=== PATIENT | female | born 1985 | race Caucasian/White ===

== ENCOUNTER 2017-02-04 17:26 | Emergency (ER) | payer MEDICAID, OTHER ==
[~2017-02-04] VITALS: Ht 157.5 cm; Wt 73.0 kg
[~2017-02-04 17:26] MED LIST: FERR27TA PO; ONDA4TAB8 PO; PREN1TAB49 PO
[2017-02-04 17:45] VITALS: Ht 157.5 cm; Wt 73.0 kg
[2017-02-04] MEDS ORDERED: IBUP400T22 PO (17:55)
--- NOTE | 2017-02-04 18:28 | ERA ---
ER Documentation Chief Complaint Date/Time DATE: 02/04/17 TIME: 18:24 Chief Complaint right hand pain x 4 days HPI This is a 31-year-old female who complains of right hand pain 2 weeks. Patient denies any trauma or causative factors/agents. Patient has not taken any medications to relieve the symptoms. Patient has had similar symptoms before and her left hand that resolved spontaneously. Patient denies any medical conditions including arthritis. Patient has no other current complaints or associated manifestations. ROS All systems reviewed and are negative except as per history of present illness. Medications Home Meds Active Scripts Ibuprofen* (Motrin*) 400 Mg Tab, 400 MG PO Q6H Y for PAIN AND OR ELEVATED TEMP, #30 TAB Prov:SUZANNE WOOD PA-C 02/04/17 Reported Medications Ferrous Sulfate (Iron) 1 Tab Tablet, 1 TAB PO DAILY 05/01/11 Ondansetron Hcl* (Zofran*) 4 Mg Tablet, 4 MG PO Q6 05/01/11 Vits W-Ca,Fe,Fa(<1MG) () 1 Tab Tablet, 1 TAB PO DAILY 05/01/11 [none] No Conflict Check 07/19/10 Allergies Allergies: Coded Allergies: No Known Allergies (Verified Allergy, Mild, 05/01/11) PMhx/Soc History of Surgery: Yes (WRIST SURGERY S/P FX) Anesthesia Reaction: No Hx Neurological Disorder: No Hx Respiratory Disorders: No Hx Cardiac Disorders: Yes (HEART MURMUR DX 2 YRS AGO) Hx Psychiatric Problems: No Hx Miscellaneous Medical Probl: No Hx Alcohol Use: No Hx Substance Use: No Hx Tobacco Use: No Physical Exam Vitals Vital Signs Date Time Temp Pulse Resp B/P Pulse Ox O2 Delivery O2 Flow Rate FiO2 02/04/17 17:45 97.6 87 18 141/97 97 Physical Exam Const: Well-appearing 31-year-old female in no acute distress sitting holding water bottle and right hand with no grossly visualized extra effort. Head: Atraumatic Eyes: Normal Conjunctiva ENT: Normal External Ears, Nose and Mouth. Neck: Full range of motion..~ No meningismus. Resp: Clear to auscultation bilaterally Cardio: Regular rate and rhythm, no murmurs Abd: Soft, non tender, non distended. Normal bowel sounds Skin: No petechiae or rashes Back: No midline or flank tenderness Ext: No cyanosis, or edema. Radial pulse 2+ bilaterally. Cyber Incident Handler strength equal bilaterally. Capillary refill under 2 seconds bilaterally. Neur: Awake and alert. Neurovascularly intact in all distributions of the upper extremities bilaterally. Psych: Normal Mood and Affect Procedures/MDM This is a 31-year-old female who is being worked up and evaluated for right hand pain without trauma. At this time I have very little suspicion for navicular fracture due to absence of snuffbox tenderness or mechanism of injury , there is no numbness or tingling and I have very low suspicion for carpal tunnel syndrome or neurovascular compromise. Patient's most likely diagnosis is tendinopathy of the right third digit. I have instructed the patient that she should follow-up with primary care physician for chronic management. 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 Patient's audograph operator strength is equal and appropriate bilaterally. Patient will be discharged with ibuprofen for control of symptoms. Patient's vitals are stable and current condition is appropriate for discharge. Departure Diagnosis: Primary Impression: Tendonitis of right hand Condition: Stable Patient Instructions: Tendonitis Additional Instructions: Follow up with your PCP within the next 1-3 days for a more thorough evaluation and a possible referral to a specialist. Return the the emergency department immediately if symptoms worsen or change. If you have any questions regarding medications, ask your pharmacist or us before you leave. If any adverse reactions occur while taking your medications, discontinue the treatment and return to the emergency department immediately. Take your medications as directed, and complete the entire course of treatment. SUZANNE WOOD PA-C February 04, 2017 18:28
== END 2017-02-04 17:50 | disposition home or self-care (01) ==
LOC: E/R 17:26
DX: M77.8 Other enthesopathies, not elsewhere classified (principal)
CPT/HCPCS: 99283

== ENCOUNTER 2017-05-25 09:12 | Emergency (ER) | payer MEDICAID, OTHER ==
[~2017-05-25] VITALS: Ht 160 cm; Wt 74.0 kg
[~2017-05-25 09:12] MED LIST changes: +IBUP400T22 PO
[2017-05-25 09:20] VITALS: Ht 160 cm; Wt 74.0 kg
[2017-05-25 10:24] LABS: BASOPHIL # 0.1 10^3/ul (0.0-0.1); BASOPHILS % 0.8 % (0.0-2.0); EOSINOPHILS # 0.3 10^3/ul (0.0-0.5); HEMATOCRIT 44.2 % (37.0-47.0); HEMOGLOBIN 14.4 g/dl (12.0-16.0); LYMPHOCYTES # 1.7 10^3/ul (0.8-2.9); LYMPHOCYTES % 22.5 % (15.0-51.0); MEAN CORPUSCULAR HEMOGLOBIN 27.4 pg (29.0-33.0); MEAN CORPUSCULAR HGB CONC 32.6 g/dl (32.0-37.0); MEAN CORPUSCULAR VOLUME 84.2 fl (82.0-101.0); MEAN PLATELET VOLUME 10.9 fl (7.4-10.4); MONOCYTE # 0.4 10^3/ul (0.3-0.9); MONOCYTES % 5.6 % (0.0-11.0); NEUTROPHILS % 66.3 % (39.0-77.0); PLATELET COUNT 220 10^3/UL (140-415); RED BLOOD COUNT 5.25 10^6/ul (4.20-5.40); RED CELL DISTRIBUTION WIDTH 13.2 % (11.5-14.5); WHITE BLOOD COUNT 7.7 10^3/ul (4.8-10.8)
[2017-05-25 10:29] LABS: ADD UMIC NO; UR ASCORBIC ACID NEGATIVE (NEGATIVE); UR BILIRUBIN (Dip) NEGATIVE (NEGATIVE); UR BLOOD (Dip) NEGATIVE (NEGATIVE); UR CLARITY CLEAR (CLEAR); UR COLOR YELLOW (YELLOW); UR GLUCOSE (Dip) NEGATIVE (NEGATIVE); UR KETONES (Dip) NEGATIVE (NEGATIVE); UR LEUKOCYTE ESTERASE (Dip) NEGATIVE Leu/ul (NEGATIVE); UR NITRITE (Dip) NEGATIVE (NEGATIVE); UR TOTAL PROTEIN (Dip) NEGATIVE (NEGATIVE); UR UROBILINOGEN (Dip) NEGATIVE (NEGATIVE)
[2017-05-25 10:52] LABS: ALBUMIN 4.6 g/dl (3.3-4.9); ALBUMIN/GLOBULIN RATIO 1.31; BILIRUBIN,INDIRECT 0.3 mg/dl (0-1.1); BILIRUBIN,TOTAL 0.3 mg/dl (0.2-1.3); CALCIUM 9.7 mg/dl (8.4-10.2); CREATININE 0.72 mg/dl (0.44-1.00); POTASSIUM 4.4 mmol/L (3.5-5.1); TOTAL PROTEIN 8.1 g/dl (6.1-8.1)
--- NOTE | 2017-05-25 11:06 | ERD ---
ER Documentation Chief Complaint Date/Time DATE: 05/25/17 TIME: 11:04 Chief Complaint EPIGASTRIC, NAUSEA AND CONSTIPATION/DIARRHEA X1 WK. BLACD STOOL THIS AM HPI Patient is a 32-year-old female who presents with multiple complaints. She is complaining of having changes in her bowel movement and sometimes having constipation and sometimes having diarrhea and then today she states that she had black colored stools. He is also complaining of epigastric pain with nausea but no vomiting. She is currently being treated with Macrobid for urinary tract infection she is taking Macrobid now for 2 days. No fever. ROS All systems reviewed and are negative except as per history of present illness. Medications Home Meds Active Scripts Ibuprofen* (Motrin*) 400 Mg Tab, 400 MG PO Q6H Y for PAIN AND OR ELEVATED TEMP, #30 TAB Prov:SUZANNE WOOD PA-C 02/04/17 Reported Medications Ferrous Sulfate (Iron) 1 Tab Tablet, 1 TAB PO DAILY 05/01/11 Ondansetron Hcl* (Zofran*) 4 Mg Tablet, 4 MG PO Q6 05/01/11 Vits W-Ca,Fe,Fa(<1MG) () 1 Tab Tablet, 1 TAB PO DAILY 05/01/11 [none] No Conflict Check 07/19/10 Allergies Allergies: Coded Allergies: No Known Allergies (Verified Allergy, Mild, 05/01/11) PMhx/Soc History of Surgery: Yes (WRIST SURGERY) Anesthesia Reaction: No Hx Neurological Disorder: No Hx Respiratory Disorders: No Hx Cardiac Disorders: Yes (HEART MURMUR ) Hx Psychiatric Problems: No Hx Miscellaneous Medical Probl: No (H Pylori) Hx Alcohol Use: No Hx Substance Use: No Hx Tobacco Use: No FmHx Family History: No diabetes Physical Exam Vitals Vital Signs Date Time Temp Pulse Resp B/P Pulse Ox O2 Delivery O2 Flow Rate FiO2 05/25/17 09:20 97.9 77 22 153/103 99 Physical Exam INITIAL VITAL SIGNS: Reviewed by me GENERAL: Awake, alert and oriented x 4, well appearing, nontoxic, speaking in full sentences. No acute distress HEAD: Atraumatic NECK: Supple. No masses. Full range of motion. No meningismus. No midline tenderness. EYES: EOMI. PERRL. . RESPIRATORY: Clear to auscultation bilaterally. Symmetric chest wall rise. No wheezing or rales. No accessory muscle use. CV: Regular rate and rhythm. No murmurs, rubs, or gallops. ABDOMEN: Soft, non-distended. Nontender. Negative Hudson. Negative McBurneys point tenderness. No CVA tenderness bilaterally. No guarding. No rebound. : Deffered. Result Diagram: 05/25/17 1005 05/25/17 1005 Results 24 hrs Laboratory Tests Test 05/25/17 10:00 05/25/17 10:01 05/25/17 10:05 Stool Occult Blood NEGATIVE Urine Color YELLOW Urine Clarity CLEAR Urine pH 6.0 Urine Specific [place] 1.010 Urine Ketones NEGATIVEmg/dL Urine Nitrite NEGATIVEmg/dL Urine Bilirubin NEGATIVEmg/dL Urine Urobilinogen NEGATIVEmg/dL Urine Leukocyte Esterase NEGATIVELeu/ul Urine Hemoglobin NEGATIVEmg/dL Urine Glucose NEGATIVEmg/dL Urine Total Protein NEGATIVEmg/dl White Blood Count 7.710^3/ul Red Blood Count 5.2510^6/ul Hemoglobin 14.4g/dl Hematocrit 44.2% Mean Corpuscular Volume 84.2fl Mean Corpuscular Hemoglobin 27.4pg Mean Corpuscular Hemoglobin Concent 32.6g/dl Red Cell Distribution Width 13.2% Platelet Count 40273^3/UL Mean Platelet Volume 10.9fl Neutrophils % 66.3% Lymphocytes % 22.5% Monocytes % 5.6% Eosinophils % 4.0% Basophils % 0.8% Nucleated Red Blood Cells % 0.0/100WBC Neutrophils # (Manual) 5.110^3/ul Lymphocytes # 1.710^3/ul Monocytes # 0.410^3/ul Eosinophils # 0.310^3/ul Basophils # 0.110^3/ul Nucleated Red Blood Cells # 0.010^3/ul Sodium Level 140mmol/L Potassium Level 4.4mmol/L Chloride Level 104mmol/L Carbon Dioxide Level 27mmol/L Anion Gap 13 Blood Urea Nitrogen 7mg/dl Creatinine 0.72mg/dl Glucose Level 95mg/dl Calcium Level 9.7mg/dl Total Bilirubin 0.3mg/dl Direct Bilirubin 0.00mg/dl Indirect Bilirubin 0.3mg/dl Aspartate Amino Transf (AST/SGOT) 29IU/L Alanine Aminotransferase (ALT/SGPT) 43IU/L Alkaline Phosphatase 94IU/L Total Protein 8.1g/dl Albumin 4.6g/dl Globulin 3.50g/dl Albumin/Globulin Ratio 1.31 Lipase 72U/L Procedures/MDM 32-year-old female presents complaining of dark colored stools today. Blood pressure is elevated 153/103 otherwise vitals are stable. She is afebrile. She has no tenderness throughout her GI examination. The differential diagnosis includes but is not limited to appendicitis, cholelithiasis, cholecystitis, pancreatitis, hepatitis, gastritis, peptic ulcer disease, bowel obstruction, diverticulitis, renal disease including stones, torsion, AAA, pyelonephritis, and others. Her blood work is unremarkable and furthermore the Hemoccult stool test is negative for blood. She is discharged with instructions to continue to take her Macrobid as prescribed. Patient counseled regarding my diagnostic impression and care plan. Prior to discharge all questions answered. Pt agrees with treatment plan and understands strict return precautions. Pt is instructed to follow up with primary care provider within 24- 48 hours. Precautionary instructions provided including instructions to return to the ER if not improving or for any worsening or changing symptoms or concerns. Departure Diagnosis: Primary Impression: Abdominal pain Condition: Stable Patient Instructions: Abdominal Pain Additional Instructions: Call your primary care doctor TOMORROW for an appointment during the next 1-2 days.See the doctor sooner or return here if your condition worsens before your appointment time. YAMILE HERNADEZ PA-C May 25, 2017 11:06
== END 2017-05-25 11:40 | disposition left against medical advice (07) ==
LOC: FTE 09:12
DX: R10.13 Epigastric pain (principal)
CPT/HCPCS: 36415; 80053; 81003; 82270; 83690; 85025; Z7502; 99283

== ENCOUNTER 2017-08-13 11:39 | Emergency (ER) | payer MEDICAID, OTHER ==
[~2017-08-13] VITALS: Wt 75.8 kg
--- NOTE | 2017-08-13 16:17 | RADRPT ---
PROCEDURE: Bilateral breast ultrasound, complete. CLINICAL INDICATION: 32-year-old female with bilateral breast pain. TECHNIQUE: Whole breast ultrasound is performed. COMPARISON: None FINDINGS: Ultrasound of the breast shows no evidence of mass, cyst, fluid collection or other sonographic abno rmality. There is no evidence of axillary adenopathy. IMPRESSION: No sonographic evidence of malignancy. BIRADS 1 (Negative). Recommend clinical management. RPTAT: HH .Thomas Oconnor MD, MD Date Time Electronically viewed and signed by .Thomas Oconnor MD, on 08/13/2017 16:17 .L/
--- NOTE | 2017-08-13 19:23 | ERD ---
ER Documentation Chief Complaint Chief Complaint LEFT BREAST PAIN, ONSET 1 DAY, NO DISCHARGE, ALSO WITH COUGH HPI This is a 32-year-old female presents to the ER with left-sided breast pain that started yesterday. Patient describes breast pain S tenderness MsPetey kern she touches her left breast. She has noticed slight discomfort to her right breast earlier today, however her main concern is her left breast. She does not have any nipple discharge. Patient states that she is currently sexually active and there is a possibility that she is . Patient denies any breast-feeding at this time, she denies any trauma to her breasts There is no redness or swelling to her breasts. She denies any trauma to the breasts. ROS 12 point review of systems was done, all negative except per HPI. Medications Home Meds Active Scripts Ibuprofen* (Motrin*) 400 Mg Tab, 400 MG PO Q6H Y for PAIN AND OR ELEVATED TEMP, #30 TAB Prov:SUZANNE WOOD PA-C 02/04/17 Reported Medications Ferrous Sulfate (Iron) 1 Tab Tablet, 1 TAB PO DAILY 05/01/11 Ondansetron Hcl* (Zofran*) 4 Mg Tablet, 4 MG PO Q6 05/01/11 Vits W-Ca,Fe,Fa(<1MG) () 1 Tab Tablet, 1 TAB PO DAILY 05/01/11 [none] No Conflict Check 07/19/10 Allergies Allergies: Coded Allergies: No Known Allergies (Verified Allergy, Mild, 05/01/11) PMhx/Soc History of Surgery: Yes (WRIST SURGERY) Anesthesia Reaction: No Hx Neurological Disorder: No Hx Respiratory Disorders: No Hx Cardiac Disorders: Yes (HEART MURMUR ) Hx Psychiatric Problems: No Hx Miscellaneous Medical Probl: No (H Pylori) Hx Alcohol Use: No Hx Substance Use: No Hx Tobacco Use: No Smoking Status: Never smoker Physical Exam Vitals Vital Signs Date Time Temp Pulse Resp B/P Pulse Ox O2 Delivery O2 Flow Rate FiO2 08/13/17 11:41 98.6 86 17 175/93 100 Physical Exam GENERAL: The patient is well developed and appropriate for usual state of health , in no apparent distress. HEENT: Atraumatic. BREAST: Breasts are symmetrical, there is no skin changes, nipple discharge, masses. No redness, swelling or warmth to the touch. CHEST: Clear to auscultation bilaterally. There are no rales, wheezes or rhonchi. HEART: Regular rate and rhythm. No murmurs, clicks, rubs or gallops. NEURO: Alert and oriented. SKIN: There is no apparent rash or petechia. The skin is warm and dry. Procedures/MDM Is a 32-year-old female presents to the ER with bilateral breast tenderness, patient is is likely the cause of her breast tenderness. patient denied any Vaginal bleeding or pelvic pain.Ultrasound was negative for any masses. Suspicion for mastoiditis is low as she is not breast-feeding there is no redness or swelling of her breast. He is afebrile extremely well-appearing. She is to follow-up with her primary care doctor within 1-2 days return to ER sooner if symptoms worsen. My medical decision making sure with the patient understands and agrees with plan. Departure Diagnosis: Primary Impression: Additional Impression: Breast pain Condition: Stable Patient Instructions: , New Dx Additional Instructions: Call your primary care doctor TOMORROW for an appointment during the next 1-2 days.See the doctor sooner or return here if your condition worsens before your appointment time. ANDREW GALLOWAY Aug 13, 2017 19:23
== END 2017-08-13 16:33 | disposition home or self-care (01) ==
LOC: FTE 11:39
DX: N64.4 Mastodynia (principal); Z33.1 Pregnant state, incidental
CPT/HCPCS: 76641; Z7502

== ENCOUNTER 2017-08-17 16:42 | Emergency (ER) | payer OTHER ==
[~2017-08-17] VITALS: Wt 76.2 kg
--- NOTE | 2017-08-17 18:49 | ERD ---
ER Documentation Chief Complaint Chief Complaint VAG SPOTTING THIS AM, PT PG, UNKNOWN GESTATIONAL AGE HPI 32-year-old female presents here in emergency department for complaints of vaginal spotting that started this morning. Patient is new that she was . Patient LMP was July 24, 2017. Patient denies any abdominal pain , flank pain. Patient denies any fever or chills. Patient denies any hematuria or dysuria. ROS All systems reviewed and are negative except as per history of present illness. Medications Home Meds Active Scripts Ibuprofen* (Motrin*) 400 Mg Tab, 400 MG PO Q6H Y for PAIN AND OR ELEVATED TEMP, #30 TAB Prov:SUZANNE WOOD PA-C 02/04/17 Reported Medications Ferrous Sulfate (Iron) 1 Tab Tablet, 1 TAB PO DAILY 05/01/11 Ondansetron Hcl* (Zofran*) 4 Mg Tablet, 4 MG PO Q6 05/01/11 Vits W-Ca,Fe,Fa(<1MG) () 1 Tab Tablet, 1 TAB PO DAILY 05/01/11 [none] No Conflict Check 07/19/10 Allergies Allergies: Coded Allergies: No Known Allergies (Verified Allergy, Mild, 05/01/11) PMhx/Soc History of Surgery: Yes (WRIST SURGERY) Anesthesia Reaction: No Hx Neurological Disorder: No Hx Respiratory Disorders: No Hx Cardiac Disorders: Yes (HEART MURMUR ) Hx Psychiatric Problems: No Hx Miscellaneous Medical Probl: No (H Pylori) Hx Alcohol Use: No Hx Substance Use: No Hx Tobacco Use: No FmHx Family History: No coronary disease, No diabetes, No other Physical Exam Vitals Vital Signs Date Time Temp Pulse Resp B/P Pulse Ox O2 Delivery O2 Flow Rate FiO2 08/17/17 16:47 99.2 87 18 151/93 97 Physical Exam GENERAL: The patient is well developed and appropriate for usual state of health, in no apparent distress. CHEST: Clear to auscultation bilaterally. There are no rales, wheezes or rhonchi. HEART: Regular rate and rhythm. No murmurs, clicks, rubs or gallops. No S3 or S4. ABDOMEN: Soft, nontender and nondistended. Good bowel sounds. No rebound or guarding. No gross peritonitis. No gross organomegaly or masses. No Price sign or McBurney point tenderness. BACK: No midline or flank tenderness. EXTREMITIES: Equal pulses bilaterally. There is no peripheral clubbing, cyanosis or edema. No focal swelling or erythema. Full range of motion. Grossly neurovascularly intact. NEURO: Alert and oriented. Cranial nerves 2-12 intact. Motor strength in all 4 extremities with 5/5 strength. Sensation grossly intact. Normal speech and gait. SKIN: There is no apparent rash or petechia. The skin is warm and dry. HEMATOLOGIC AND LYMPHATIC: There is no evidence of excessive bruising or lymphedema. No gross cervical, axillary, or inguinal lymphadenopathy. Vaginal: Small amount of blood in the vaginal vault, cervical loss is closed. No cervical motion tenderness or adnexal tenderness noted. Result Diagram: 08/17/17 1850 Results 24 hrs Laboratory Tests Test 08/17/17 18:50 White Blood Count 9.210^3/ul Red Blood Count 4.9310^6/ul Hemoglobin 13.9g/dl Hematocrit 40.7% Mean Corpuscular Volume 82.6fl Mean Corpuscular Hemoglobin 28.2pg Mean Corpuscular Hemoglobin Concent 34.2g/dl Red Cell Distribution Width 13.2% Platelet Count 15244^3/UL Mean Platelet Volume 10.9fl Neutrophils % 70.9% Lymphocytes % 19.2% Monocytes % 5.6% Eosinophils % 3.2% Basophils % 0.7% Nucleated Red Blood Cells % 0.0/100WBC Neutrophils # 6.510^3/ul Lymphocytes # 1.810^3/ul Monocytes # 0.510^3/ul Eosinophils # 0.310^3/ul Basophils # 0.110^3/ul Nucleated Red Blood Cells # 0.010^3/ul Urine Color YELLOW Urine Clarity SLIGHTLY CLOUDY Urine pH 7.0 Urine Specific [place] 1.011 Urine Ketones NEGATIVEmg/dL Urine Nitrite NEGATIVEmg/dL Urine Bilirubin NEGATIVEmg/dL Urine Urobilinogen NEGATIVEmg/dL Urine Leukocyte Esterase 3+Marisela/ul Urine Microscopic RBC 1/HPF Urine Microscopic WBC 2/HPF Urine Squamous Epithelial Cells MODERATE/HPF Urine Bacteria FEW/HPF Urine Hemoglobin 2+mg/dL Urine Glucose NEGATIVEmg/dL Urine Total Protein NEGATIVEmg/dl Beta HCG, Quantitative < 2.4mIU/ml PROCEDURE: US Pelvis. CLINICAL INDICATION: Pelvic pain . Spine. TECHNIQUE: Transabdominal and transvaginal pelvic ultrasound are performed. COMPARISON: None. FINDINGS: The uterus is normal in echogenicity and anteverted in orientation. The uterus measures 8.7 x 4.5 x 6.6 cm. No focal fibroids are identified. A normal secretory endometrium is identified measuring 1.2 cm. No intrauterine is seen.. The cervix is normal in appearance. Both ovaries are identified, and normal in size, shape, and appearance. No complex adnexal masses are identified.. Normal Doppler flow is noted of both ovaries. The right ovary measures 3.1 x 2.2 x 2.5 cm, and the left ovary measures 3.1 x 2.2 x 2.6 cm There is no free fluid in the pelvis IMPRESSION: 1. No intrauterine identified. 2. Normal endometrium measuring 1.2 cm. 3. Unremarkable ovaries bilaterally. No complex adnexal masses. 4. Normal Doppler flow to both ovaries. 5. No free fluid the pelvis RPTAT: HH .Dann Hedrick MD, MD Date Time Electronically viewed and signed by .Dann Hedrick MD, MD on 08/17/2017 19:34 .W/ CC: GRACIE MARMOLEJO RADIOLOGY SPECIAL PROCEDURE TECH Procedures/MDM Medical Decision Making: Patients vaginal bleeding is typical at this time , possibly starting her period again. Patient does not show any evidence of hypovolemic shock. Patients hemoglobin and hematocrit is stable. There is low suspicion for ectopic . SULEMA results show does not show any .. BetaHCG Quantitative is less than 2.4, very low negative for .The patient is Rh+, does not need RhoGAM this time. There is no signs of symptoms of dehydration. There is low suspicion for sepsis. Patient appears well and is hemodynamically stable. Patient is a urinary tract infection may be causing the symptoms. Disposition: Home. Condition: Stable Prescription: Keflex Instructions: Patient is advised to do bed rest, avoid heavy lifting, and avoid having sex until cleared by OB doctor. Patient is advised to follow up with OB doctor or here at the ER in 48 hours for reevaluation of symptoms, repeat beta HCG quantitative and ultrasound. Patient is advised that is symptoms are worst, severe bleeding, dizziness, severe abdominal pain, fever, worst signs and symptoms to return to the emergency department immediately. Disclaimer: Inadvertent spelling and grammatical errors are likely due to EHR/ dictation software use and do not reflect on the overall quality of patient care. Also, please note that the electronic time recorded on this note does not necessarily reflect the actual time of the patient encounter. Departure Diagnosis: Primary Impression: UTI (lower urinary tract infection) Additional Impression: Vaginal bleeding Condition: Stable Patient Instructions: Dysfunctional Uterine Bleeding, Understanding Urinary Tract Infections (UTIs) Additional Instructions: Patient is advised to do bed rest, avoid heavy lifting, and avoid having sex until cleared by OB doctor. Patient is advised to follow up with OB doctor or here at the ER in 48 hours for reevaluation of symptoms, repeat beta HCG quantitative and ultrasound. Patient is advised that is symptoms are worst, severe bleeding, dizziness, severe abdominal pain, fever, worst signs and symptoms to return to the emergency department immediately. GRACIE MARMOLEJO NP Aug 17, 2017 18:49
[2017-08-17 19:14] LABS: BASOPHIL # 0.1 10^3/ul (0.0-0.1); BASOPHILS % 0.7 % (0.0-2.0); EOSINOPHILS # 0.3 10^3/ul (0.0-0.5); EOSINOPHILS % 3.2 % (0.0-7.0); HEMATOCRIT 40.7 % (37.0-47.0); HEMOGLOBIN 13.9 g/dl (12.0-16.0); LYMPHOCYTES # 1.8 10^3/ul (0.8-2.9); LYMPHOCYTES % 19.2 % (15.0-51.0); MEAN CORPUSCULAR HEMOGLOBIN 28.2 pg (29.0-33.0); MEAN CORPUSCULAR HGB CONC 34.2 g/dl (32.0-37.0); MEAN CORPUSCULAR VOLUME 82.6 fl (82.0-101.0); MEAN PLATELET VOLUME 10.9 fl (7.4-10.4); MONOCYTE # 0.5 10^3/ul (0.3-0.9); MONOCYTES % 5.6 % (0.0-11.0); NEUTROPHIL # 6.5 10^3/ul (1.6-7.5); NEUTROPHILS % 70.9 % (39.0-77.0); PLATELET COUNT 264 10^3/UL (140-415); RED BLOOD COUNT 4.93 10^6/ul (4.20-5.40); RED CELL DISTRIBUTION WIDTH 13.2 % (11.5-14.5); WHITE BLOOD COUNT 9.2 10^3/ul (4.8-10.8)
[2017-08-17 19:24] LABS: ADD UMIC YES; UR ASCORBIC ACID NEGATIVE (NEGATIVE); UR BACTERIA FEW /HPF (NONE SEEN); UR BILIRUBIN (Dip) NEGATIVE (NEGATIVE); UR BLOOD (Dip) 2+ mg/dL (NEGATIVE); UR CLARITY SLIGHTLY CLOUDY (CLEAR); UR COLOR YELLOW (YELLOW); UR GLUCOSE (Dip) NEGATIVE (NEGATIVE); UR KETONES (Dip) NEGATIVE (NEGATIVE); UR LEUKOCYTE ESTERASE (Dip) 3+ Leu/ul (NEGATIVE); UR NITRITE (Dip) NEGATIVE (NEGATIVE); UR RBC 1 /HPF (0-5); UR SPECIFIC GRAVITY (Dip) 1.011 (1.003-1.030); UR SQUAMOUS EPITHELIAL CELL MODERATE /HPF (FEW); UR TOTAL PROTEIN (Dip) NEGATIVE (NEGATIVE); UR UROBILINOGEN (Dip) NEGATIVE (NEGATIVE)
--- NOTE | 2017-08-17 19:35 | RADRPT ---
PROCEDURE: US Pelvis. CLINICAL INDICATION: Pelvic pain . Spine. TECHNIQUE: Transabdominal and transvaginal pelvic ultrasound are performed. COMPARISON: None. FINDINGS: The uterus is normal in echogenicity and anteverted in orientation. The uterus measures 8.7 x 4.5 x 6.6 cm. No focal fibroids are identified. A normal secretory endometrium is identified measuring 1.2 cm. No intrauterine is seen.. The cervix is normal in appearance. Both ovaries are identified, and normal in size, shape, and appearance. No complex adnexal masses a re identified.. Normal Doppler flow is noted of both ovaries. The right ovary measures 3.1 x 2.2 x 2.5 cm, and the left ovary measures 3.1 x 2.2 x 2.6 cm There is no free fluid in the pelvis IMPRESSION: 1. No intrauterine identified. 2. Normal endometrium measuring 1.2 cm. 3. Unremarkable ovaries bilaterally. No complex adnexal masses. 4. Normal Doppler flow to both ovaries. 5. No free fluid the pelvis RPTAT: HH .Dann Hedrick MD, Date Time Electronically viewed and signed by .Dann Hedrick MD, MD on 08/17/2017 19:34 .W/
[2017-08-17] MEDS ORDERED: CEPH-443 PO (20:22)
== END 2017-08-17 20:30 | disposition home or self-care (01) ==
LOC: FTE 16:42
DX: O23.41 Unspecified infection of urinary tract in pregnancy, first trimester (principal); R10.2 Pelvic and perineal pain; Z3A.00 Weeks of gestation of pregnancy not specified
CPT/HCPCS: 36415; 76801; 76817; 81001; 84702; 85025; 86900; 86901; Z7502

== ENCOUNTER 2018-08-19 09:05 | Day surgery (SDC) | END 2018-08-19 16:32 | disposition home or self-care (01) ==